=== PATIENT | female | born 1970 | race American Indian/Alaskan Native ===

== ENCOUNTER 2017-11-12 10:34 | Inpatient (IN) | payer BC ==
[2017-11-05 10:03] VITALS: BMI 31.7
[2017-11-12] MEDS ORDERED: Propofol 10 mg/ml Inj (20 ML) ONE (13:26)
[2017-11-12] MEDS ORDERED: Succinylcholine 200 mg/10 ml Inj IV ONE (13:26)
[2017-11-12] MEDS ORDERED: Midazolam 2 MG/2 ML VIAL ONE (13:45)
[2017-11-12] MEDS ORDERED: Bupivacaine 0.25% Inj(30mL) ONE (14:17)
[2017-11-12] MEDS ORDERED: Lidocaine 2 GM/50 ML Vial (4%) IV ONE (14:42)
[2017-11-12] MEDS ORDERED: Neostigmine Methylsulfate 3mg/3ml Syringe IV ONE ×2 (15:02→15:52)
[2017-11-12] MEDS ORDERED: Triamcinolone Acetonide 40 mg/mL Inj ONE ×2 (15:20→15:22)
[2017-11-12] MEDS ORDERED: HYDROmorphone 0.5 mg/0.5 ml ISec IVP PRN (15:58)
[2017-11-12] MEDS ORDERED: Oxycodone/Acetaminophen 5/325 mg Tab PO PRN (16:00)
[2017-11-12] MEDS ORDERED: HYDROmorphone 0.5 mg/0.5 ml ISec ONE ×2 (16:02→17:00)
--- NOTE | 2017-11-12 16:06 | PCM.SURG1 ---
Surgeon's Initial Post Op Note - Surgeon's Notes Surgeon: Dr. Pola Naqvi Cyber Engineer: Yeimy Meade, PGY-1 Type of Anesthesia: General Endo Anesthesia Administered By: Dr. Roberts Pre-Operative Diagnosis: Menorrhagia due to fibroids Operative Findings: see op report Post-Operative Diagnosis: Menorrhagia due to fibroids Operation Performed: Total abdominal supracervical hysterectomy with bilateral salpinectomy Specimen/Specimens Removed: Uterus, cervical canal specimen, Fallopian tubes Estimated Blood Loss: EBL {In ML}: 150 Blood Products Given: N/A Drains Used: No Drains Post-Op Condition: Good Date of Surgery/Procedure: 11/12/17 Time of Surgery/Procedure: 16:06
[2017-11-12] MEDS: Levothyroxine 50 MCG TAB PO SCH (17:37)
[2017-11-12] MEDS ORDERED: Pneumococcal 23-Valent Vaccine IM ONE (22:42)
[2017-11-13] MEDS ORDERED: Morphine 2 mg/ml ISec IVP STA (02:07)
[2017-11-13 08:12] VITALS: BP 105/68; PULSE 55; RESP 18; TEMP 98.2; O2SAT 99
--- NOTE | 2017-11-13 08:19 | OP ---
PROCEDURE DATE: 11/12/2017 PREOPERATIVE DIAGNOSES: Symptomatic fibroid uterus, with menorrhagia and anemia. POSTOPERATIVE DIAGNOSES: Symptomatic fibroid uterus, with menorrhagia and anemia. PROCEDURE PERFORMED: Laparotomy, supracervical abdominal hysterectomy, bilateral salpingectomy. SURGEON: Pola Naqvi MD SEWING MACHINE ASSEMBLER SURGEON: Dr. Meade. ANESTHESIA: General endotracheal. ESTIMATED BLOOD LOSS: 100 mL. FINDINGS: Uterus was approximately 14 weeks in size with fibroid. Right and left adnexa were examined and found to be normal. DESCRIPTION OF PROCEDURE: After informed consent was discussed with the patient, the patient signed her consent. She was brought into the operating room. General endotracheal anesthesia was induced. The patient was prepped and draped in the usual sterile fashion and a Jfef catheter was inserted. A Pfannenstiel skin incision was made, it was brought down to the fascia. Fascia was opened. Rectus muscle was split. Peritoneum was visualized, grasped with 2 hemostats, opened superiorly and inferiorly avoiding the bladder. Entering to the pelvic cavity, the uterus was examined, noted to be approximately 14 weeks in size with a large intramural fibroid. Right and left adnexa were found to be normal in appearance. The bowels were packed back and a O'Chet-O'Chapman retractor was gently inserted. The uterus was elevated upwards out of the incisional field and using LigaSure device, the round ligaments were visualized, grasped, clamped, fired upon, and transected. Once they were transected and hemostasis was excellent, the ovarian ligaments as well as the salpinges were grasped, fired upon for 3 fires, and then transected. Hemostasis was excellent throughout this time. The parauterine vessels were then clamped, cut, and tied with 0 Vicryl suture. Bladder flap was developed sharply with Metzenbaum scissors and brought down. The cardinal ligaments were then grabbed with Alexi's, they were clamped, cut and tied with 0 Vicryl suture. Once this was completed, the cervix was transected from the uterine body at the cervical uterine junction. The specimen was sent to pathology for examination. Edge of the cervix was cauterized with bursts of monopolar cauterization. The cervical stump then was closed with 0 Vicryl suture in a imbricating style stitch. Again hemostasis was excellent throughout this entire time. The pelvis was irrigated, suction dried, all pedicles were checked, found to be hemostatic. The salpinges were then amputated with the LigaSure device, sent to pathology for examination. All instruments were removed and accounted for. All laps were removed and accounted for, and retractor was removed and accounted for. A patch of was placed over the cervical stump. The peritoneum then was closed with 2-0 chromic. A On-Q pump was placed on the peritoneum and then brought out through the right pelvic lateral incision site. The fascia was closed with 0 Vicryl. Then a On-Q pump was placed over the fascia and exiting out through the left incision site. The subcu was then closed with 2-0 plain and 4-0 Monocryl is used for the skin. Dermabond was applied. The patient was gently awakened, sent to the recovery room in stable condition. Jeff had 300 mL of clear yellow urine. Pola Naqvi MD
[2017-11-13] MEDS: Levothyroxine 50 MCG TAB PO SCH (10:06)
--- NOTE | 2017-11-13 12:34 | CP.PCM.DIS ---
Provider - Provider Date of Admission: 11/12/17 11:45 Attending physician: Pola Naqvi MD Time Spent in preparation of Discharge (in minutes): 45 Diagnosis - Discharge Diagnosis (1) S/P hysterectomy Status: Acute (2) Fibroids Status: Chronic (3) Abnormal uterine bleeding (AUB) Status: Chronic (4) HTN (hypertension) Status: Chronic (5) Hypothyroid Status: Chronic Hospital Course - Lab Results Lab Results: Most Recent Lab Values Urine HCG, Qual Negative (NEGATIVE) 11/12/17 11:49 - Hospital Course Hospital Course: Patient is a 47 y/o Female with a history of abnormal uterine bleeding from uterine fibroids. Patient presented through same day surgery for suprcervical abdominal hysterectomy. Patient was stable throughout the case and tolerated it well. Patient was admitted for monitoring overnight and her home meds were started. She recovered well with adequate PO pain medication and On-q pump, urinated, tolerated regular diet, and ambulating. Patient felt comfortable going home wiht follow up with Dr. Naqvi in his office, PO pain medication, and instructions to D/C the on-q pump on Saturday. This was discussed with Dr. Naqvi, who agreed with above plan. For full hospital course, refer to chart Discharge Exam - Head Exam Head Exam: ATRAUMATIC, NORMOCEPHALIC - Eye Exam Eye Exam: Normal appearance. absent: Conjunctival injection, Scleral icterus - ENT Exam ENT Exam: Mucous Membranes Moist, Normal Oropharynx - Respiratory Exam Respiratory Exam: NORMAL BREATHING PATTERN, UNREMARKABLE. absent: Accessory Muscle Use - Cardiovascular Exam Cardiovascular Exam: RRR - GI/Abdominal Exam GI & Abdominal Exam: Soft, Tenderness (moderate appropriate tenderness around the incision). absent: Distended Additional comments: incision well approximated with dermabond - Extremities Exam Extremities exam: normal inspection, pedal pulses present - Neurological Exam Neurological exam: Alert, Oriented x3 - Psychiatric Exam Psychiatric exam: Normal Affect, Normal Mood - Skin Skin Exam: Dry, Intact, Normal Color, Warm Discharge Plan - Discharge Medications Prescriptions: oxyCODONE/Acetaminophen [Percocet 5/325 mg Tab] 1 ea PO Q6H PRN #20 tab PRN Reason: Pain, Moderate (4-7) - Follow Up Plan Condition: GOOD Disposition: HOME/ ROUTINE Instructions: How to Use an Incentive Spirometer, Smoking: Not Just Harmful to Your Lungs and Heart, Dangers of Secondhand Smoke, Hysterectomy (DC), Hysterectomy, Abdominal or Laparoscopic Surgery, Quitting Smoking, Why Vaccines Are Important for Everyone, On Q Pain Pump Additional Instructions: If you are comfortable, you may remove the OnQ catheters yourself as per the brochure in your packet on November 15, 2017. You can call the nurse hotline for help. To remove, simply gently remove the clear tape and then the brown tape, and then pull the catheter gently out, making sure that the black tip is at the end. You can also visit the website for instructions - [email or web address]. Otherwise, please make an appointment with Dr. Naqvi on Saturday for catheter removal. If you have pain, fevers or notice any discharge from the incision or catheter insertion sites, please return to hospital. You may resume a normal diet. No heavy lifting for 4-6 weeks. If you need to take the pain medication, do not drive. Pain medication can cause constipation, if you need to use it for a few days, please use an over the counter stool softener to take with it. Referrals: Pola Naqvi MD [Staff Provider] -
--- NOTE | 2017-11-14 15:25 | PQF ANEMIA ---
11/14/17 Dr. Naqvi, Abnormal uterine bleeding and anemia are documented. Please indicate whether anemia is due to acute/chronic blood loss. Thank you. Clarification of your documentation is requested to better reflect the severity of illness and intensity of treatment of your patient. Indicators present [] Anemia [] Drop in H&H from []___ to []___ [] Hypotension [] GI Bleed [] Transfusion(s) [] Acute bleed other sites [] Tachycardia [] Surgical Procedure Blood Loss (expected not a complication) Other:[] Location in the medical record that reflects the above clinical findings: [] Treatment Provided: [] PHYSICIAN'S RESPONSE Based on your medical judgment of the clinical indicators outlined above, are you treating this patient for a known or suspected: [] Acute blood loss anemia [] Chronic blood loss anemia [] Acute on Chronic blood loss anemia [] Anemia due to malignancy [] Anemia due to chemotherapy or radiation therapy [] Anemia of Chronic Disease, please specify: [] [] Other, please indicate type of anemia []____ [] If Unable to Determine, please check the box, sign and date. Present On Admission (POA) Indicator: [] Present at the time of admission [] Not present at the time of admission [] Clinically Undetermined In responding to this query, please exercise your independent professional judgment. The fact that a question is asked does not imply that any particular answer is desired or expected. Thank you for your clarification on this documentation. If you have any questions please call:[ ] * Thank you, [ ] patent leather sorter PARRIS
== END 2017-11-13 13:59 | disposition home or self-care (01) | DRG 742 ==
LOC: SDAINP 11:45 → EDSTATUS 13:30 → 5RNO 17:24
PROVIDERS: ADMIT Obstetrics & Gynecology Gynecology; ATTEND Obstetrics & Gynecology Gynecology
PROC: 0UT70ZZ Resection of Bilateral Fallopian Tubes, Open Approach (ICD-10-PCS; 2017-11-12)
PROC: 0UT90ZL Resection of Uterus, Supracervical, Open Approach (ICD-10-PCS; principal; 2017-11-12 13:30)
DX: D25.1 Intramural leiomyoma of uterus (principal); D62 Acute posthemorrhagic anemia; N92.0 Excessive and frequent menstruation with regular cycle; D25.9 Leiomyoma of uterus, unspecified; E03.9 Hypothyroidism, unspecified; I10 Essential (primary) hypertension; D50.0 Iron deficiency anemia secondary to blood loss (chronic)